=== PATIENT | male | born 1995 | race Caucasian/White ===

== ENCOUNTER 2017-06-22 19:13 | Emergency (ER) | payer SELFPAY ==
[2017-06-22] MEDS ORDERED: Tetracaine HCl 0.5% Ophth Soln 2 ML Bottle ONE (19:17)
[2017-06-22] MEDS ORDERED: Fluorescein Opthalmic Strip ONE (19:18)
[2017-06-22] MEDS ORDERED: Erythromycin Base 0.5% Ophth Oint 3.5 gm Tube ONE (19:42)
--- NOTE | 2017-06-22 20:01 | RAD ---
EYE RADIOGRAPH FOR FOREIGN BODY 06/22/17 HISTORY: Evaluate for foreign body in the right eye. 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 COMPARISON: None. FINDINGS: On the Water's view there is a radiopacity projecting over the left zygoma. This is the only view wh ere this is seen. No radiopacities seen over the right orbits. IMPRESSION: 1. No radiopacities seen in the right orbit. 2. Only seen on the Water's view is a small 2 mm radiopacity projecting over the left zygoma. POS: [facility]
== END 2017-06-22 19:51 | disposition home or self-care (01) ==
LOC: BURERS 19:13
DX: T15.01XA Foreign body in cornea, right eye, initial encounter (principal); F17.210 Nicotine dependence, cigarettes, uncomplicated; X58.XXXA Exposure to other specified factors, initial encounter; W31.1XXA Contact with metalworking machines, initial encounter
CPT/HCPCS: 65220

== ENCOUNTER 2019-06-08 10:22 | Emergency (ER) | payer SELFPAY ==
[2019-06-08] MEDS ORDERED: predniSONE 20 MG TAB ONE (10:45)
== END 2019-06-08 10:50 | disposition home or self-care (01) ==
LOC: BURERS 10:22
DX: L23.7 Allergic contact dermatitis due to plants, except food (principal); F17.210 Nicotine dependence, cigarettes, uncomplicated
CPT/HCPCS: 99282; J7512

== ENCOUNTER 2021-02-25 11:33 | Emergency (ER) | payer SELFPAY | END 2021-02-25 12:09 | disposition home or self-care (01) | LOC: BURERS 11:33 | DX: B75 Trichinellosis (principal); F17.210 Nicotine dependence, cigarettes, uncomplicated | CPT/HCPCS: 99282 ==

== ENCOUNTER 2022-03-07 10:53 | Emergency (ER) | payer SELFPAY ==
[2022-03-07] MEDS ORDERED: Ketorolac Tromethamine 60 MG/2 ML VIAL ONE (11:21)
== END 2022-03-07 11:45 | disposition home or self-care (01) ==
LOC: BURERS 10:53
DX: M54.50 Low back pain, unspecified (principal); F17.210 Nicotine dependence, cigarettes, uncomplicated
CPT/HCPCS: 96372; 99283; J1885

== ENCOUNTER 2022-06-09 15:18 | Emergency (ER) | payer SELFPAY ==
[2022-06-09] MEDS ORDERED: Ketorolac Tromethamine 60 MG/2 ML VIAL ONE (15:47)
== END 2022-06-09 16:14 | disposition home or self-care (01) ==
LOC: BURERS 15:18
DX: S29.011A Strain of muscle and tendon of front wall of thorax, initial encounter (principal); F17.210 Nicotine dependence, cigarettes, uncomplicated; X50.9XXA Other and unspecified overexertion or strenuous movements or postures, initial encounter
CPT/HCPCS: 96372; 99283; J1885

== ENCOUNTER 2022-07-24 21:25 | Emergency (ER) | payer SELFPAY ==
[2022-07-24] MEDS ORDERED: Bupivacaine 0.5% 10 ML VIAL ONE ×2 (21:33→21:36)
[2022-07-24] MEDS ORDERED: Bacitracin 1 PK ONE (22:03)
== END 2022-07-24 22:20 ==
LOC: BURERS 21:25
DX: S91.311A Laceration without foreign body, right foot, initial encounter (principal); W22.8XXA Striking against or struck by other objects, initial encounter
CPT/HCPCS: 12002; J3490

== ENCOUNTER 2023-01-21 18:13 | Emergency (ER) | payer SELFPAY ==
[2023-01-21] MEDS ORDERED: Ibuprofen 800 MG TAB ONE (18:36)
== END 2023-01-21 19:14 | disposition home or self-care (01) ==
LOC: BURERS 18:13
DX: S63.601A Unspecified sprain of right thumb, initial encounter (principal); X50.1XXA Overexertion from prolonged static or awkward postures, initial encounter; Y99.0 Civilian activity done for income or pay; F17.210 Nicotine dependence, cigarettes, uncomplicated